=== PATIENT | female | born 1945 | race Caucasian/White ===

== ENCOUNTER → 2018-12-02 | Outpatient (CLI) | payer BC, MEDICARE ==
--- NOTE | 2018-12-02 17:19 | RADRPT ---
Vent Rate: 63 bpm RR Interval: 944 msec IA Interval: 145 msec QRS Duration: 61 msec QT Interval: 430 msec QTC Interval: 443 msec P-R-T Golden: 67 - 78 - 111 degrees Sinus rhythm...normal P axis, V-rate 50- 99 Abnormal T, consider ischemia, lateral leads...T <-0.20mV, I aVL V5 V6 Electronically Signed By: Elvin Foster
== END | disposition home or self-care (01) ==
LOC: EKG 11:10
PROVIDERS: ATTEND Internal Medicine
DX: R07.89 Other chest pain (principal)
CPT/HCPCS: 93005